=== PATIENT | female | born 1945 | race African-American/Black ===

== ENCOUNTER → 2021-07-01 | Outpatient (CLI) | payer MEDICARE ==
[2014-07-02 11:22] VITALS: BP 133/71
[~2021-07-01] MED LIST: CALC600T60 PO; HYDR-2145 PO; HYDR-2761 PO; KRIL500C PO; LEVO25TA55 PO; LISI-130 PO; MULT-445 PO; NAPR220C4 PO
--- NOTE | 2021-07-01 16:46 | KCIC ---
EXAM: XR HIP (WITH OR WITHOUT PELVIS) 1 VIEW 07/01/2021 1:54 PM CLINICAL INDICATION: Bilateral hip pain left greater than right DJD. Pain improved after hip injecti on. COMPARISON: None TECHNIQUE: AP view of the pelvis. AP and frog-leg lateral view of the right and left hip FINDINGS: There is moderate bilateral hip joint space narrowing with prominent acetabular and femora l head osteophytes. There is subchondral sclerosis and small subchondral cysts in the acetabula bilat erally. No acute fracture or malalignment. Pubic symphysis and sacral iliac joints are maintained. Th ere is lower lumbar facet arthrosis. IMPRESSION: Moderate degenerative joint disease of the hips. Electronically signed by: Zee Matamoros MD (07/01/2021 4:43 PM) [id number]
== END ==
LOC: KCIC 13:50
PROVIDERS: ATTEND Physical Medicine & Rehabilitation
DX: M16.0 Bilateral primary osteoarthritis of hip (principal); M25.751 Osteophyte, right hip; M25.752 Osteophyte, left hip; M25.851 Other specified joint disorders, right hip; M25.852 Other specified joint disorders, left hip
CPT/HCPCS: 73521